=== PATIENT | male | born 1960 | race Two or more races ===

== ENCOUNTER 2019-02-04 10:16 | Inpatient (IN) | payer BC, MEDICAID ==
[~2019-02-04] VITALS: Ht 167.6 cm; Wt 82.9 kg
[2019-02-04 11:56] LABS: Basophils # (auto) 0 uL; Basophils % (auto) 0.5 % (0.0-2.0); Eosinophils # (auto) 0.1 uL; Eosinophils % (auto) 1.6 % (0.0-7.0); Hematocrit 40.4 % (41.0-53.0); Hemoglobin 14.2 g/dL (13.5-17.5); Lymphocytes # (auto) 1.6 uL; Lymphocytes % (auto) 27.5 % (10.0-50.0); Mean Corpuscular Hemoglobin 29.8 pg (28.0-32.0); Mean Corpuscular Hgb Conc. 35.2 g/dL (32.0-36.0); Mean Corpuscular Volume 84.8 fL (80.0-100.0); Monocytes # (auto) 0.4 uL; Monocytes % (auto) 7.6 % (0.0-12.0); Neutrophils # (auto) 3.7 uL; Neutrophils % (auto) 62.8 % (37.0-80.0); Nucleated Red Blood Cells % 0.1 %; Platelet Count (auto) 228 10^3/uL (140-450); Red Blood Cells 4.76 10^6/uL (4.5-5.90); Red Cell Distribution Width 13.7 % (11.8-14.3); White Blood Cell 5.9 10^3/uL (4.4-10.8)
[2019-02-04 12:10] LABS: Albumin 3.2 g/dL (3.4-5.0); Anion Gap 9 (5-15); Calcium 8.2 mg/dL (8.5-10.1); Carbon Dioxide 25 mmol/L (21-32); Chloride 98 mmol/L (98-107); Glucose 351 mg/dL (74-106); Potassium 4.2 mmol/L (3.5-5.1); Sodium 132 mmol/L (136-145)
[2019-02-04 12:17] LABS: Alkaline Phosphatase 91 U/L (45-117); Bilirubin, Total 0.6 mg/dL (0.2-1.0); GFR African American 97 mL/min; GFR Non-African American 80 mL/min
[2019-02-04 12:45] LABS: Alanine Aminotransferase 38 U/L (16-61); Aspartate Aminotransferase 20 U/L (15-37)
[2019-02-04 13:00] LABS: BUN/Creatinine Ratio 14.9; Blood Urea Nitrogen 15 mg/dL (7-18)
[2019-02-04] MEDS ORDERED: SODIUM CHLORIDE 0.9% 1,000 ML IV ONE (13:30)
[2019-02-04] MEDS ORDERED: ASPirin 81 mg TAB PO ONE (13:30)
[2019-02-04] MEDS: SODIUM CHLORIDE 0.9% 1,000 ML IV SCH (16:23)
[2019-02-04] MEDS ORDERED: ACETAMINOPHEN 500 MG TAB PO PRN (16:30)
[2019-02-04] MEDS ORDERED: TEMAZEPAM 15 MG CAP PO PRN (16:30)
[2019-02-04] MEDS ORDERED: DEXTROSE (50%) 50ML SYRG IV PRN (16:30)
[2019-02-04] MEDS ORDERED: NITROGLYCERIN 0.4 MG SL TAB SL PRN (16:30)
[2019-02-04] MEDS ORDERED: traMADol HCL 50 MG TAB PO PRN (16:30)
[2019-02-04 17:05] LABS: INR 1.07 (0.9-1.15); Partial Thromboplastin Time 27.3 sec (23.64-32.05)
[2019-02-04 17:35] LABS: CRP High Sensitivity 0.22 mg/dL (< 0.3)
[2019-02-04] MEDS: MORPHINE SULF INJ 2 MG/ML SYRINGE 1ML IV PRN ×2 (19:53→22:20)
--- NOTE | 2019-02-04 20:10 | NUR ---
Telemetry admit from ER LUPE FORD admitted to Telemetry unit after SBAR received. Patient oriented to primary RN, unit, room, bed, and unit policies regarding patient care and visiting hours. Patient now on continuous telemetry monitoring, tele box #. Patient placed on bedside oxygen, weighed by bedscale and encouraged to call if they need something. All questions and concerns addressed, patient verbalized understanding.
[2019-02-04 22:00] VITALS: BP 138/66
[2019-02-04] MEDS ORDERED: ATORVASTATIN 20 MG TAB PO SCH (22:00)
--- NOTE | 2019-02-04 22:00 | NUR ---
Patient complains of chest pain. EKG and vitals done. Vitals stable. Patient then offered Nitro and refused the medication. He stated "Nitroglycerin never works for me and it always gives me a big headache". Educated was provided of the goal and side effects of Nitroglycerin.
[2019-02-04] MEDS: InsuLIN REG 1unit/0.01ml Soln (100units/ml) SC SCH (22:19)
[2019-02-04] MEDS: ACCU-CHEK COMFORT CURVE STRIP VI SCH (22:19)
--- NOTE | 2019-02-04 22:20 | NUR ---
Patient given first dose of Morphine for chest pain
[2019-02-04] MEDS: METOPROLOL TARTRATE 25 MG TAB PO SCH (22:29)
[2019-02-04] MEDS: FAMOTIDINE 20 MG TAB PO SCH (22:29)
--- NOTE | 2019-02-04 23:00 | NUR ---
Upon reassessment, patient stated that he feels much better and the pain decreased. Patient comfortable with no s/s of distress. Call light within reach. Will continue to monitor for changes Q1 hour and PRN. Charge nurse made aware.
[2019-02-04] MEDS ORDERED: LOSA25TA8 PO (23:36)
[2019-02-04] MEDS ORDERED: ATOR80TA PO (23:36)
[2019-02-04] MEDS ORDERED: INSLANTI SC (23:36)
[2019-02-04] MEDS ORDERED: METF-370 PO (23:36)
[2019-02-05] MEDS: InsuLIN REG 1unit/0.01ml Soln (100units/ml) SC SCH ×6 (00:48→20:00)
[2019-02-05] MEDS: ACCU-CHEK COMFORT CURVE STRIP VI SCH ×6 (00:48→20:00)
[2019-02-05 03:46] LABS: HDL Cholesterol 37 mg/dL (40-59); Triglycerides 2417 mg/dL (< 150)
[2019-02-05 03:56] LABS: Cholesterol 358 mg/dL (< 200)
[2019-02-05 05:48] VITALS: BP 141/71
[2019-02-05] MEDS: SODIUM CHLORIDE 0.9% 1,000 ML IV SCH ×2 (06:02→17:15)
--- NOTE | 2019-02-05 06:52 | NUR ---
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 Upon entrance of the room, patient stated that he feels as though his blood sugar is still running low. Blood sugar was checked and resulted at 106
--- NOTE | 2019-02-05 06:55 | NUR ---
Patient stated that he is in pain with a rating of 10/10. Pain medication was offered for severe pain and patient accepted. Medication was then drawn up and brought into the room. Patient then stated "i dont think i want that medication anymore because i feel like i am having a hard time catching my breath and i think the medication will make it worse". Oxygen by NC was offered and patient refused. Patient educated on deep breathing and relaxation techniques. Care will be endorsed to day shift RN.
--- NOTE | 2019-02-05 07:30 | NUR ---
Opening Shift Note Assumed care of patient, awake and alert. No S/S of distress/SOB or pain. Instructed on POC and to call for assist PRN, will continue to monitor for changes Q1hr and PRN.
[2019-02-05 09:00] VITALS: BP 141/68
[2019-02-05] MEDS: FAMOTIDINE 20 MG TAB PO SCH ×2 (09:13→21:53)
[2019-02-05] MEDS: METOPROLOL TARTRATE 25 MG TAB PO SCH ×2 (09:14→21:59)
[2019-02-05] MEDS: ASPirin 81 mg TAB PO SCH (09:14)
[2019-02-05] MEDS: ENOXAPARIN SOD 40 MG/0.4 ML SYRINGE SC SCH (09:15)
[2019-02-05] MEDS: NITROGLYCERIN 0.2MG/HR TOPICAL PATCH TD SCH (09:15)
[2019-02-05] MEDS: MORPHINE SULFATE 4 MG/ML SYR/VIAL IV PRN ×2 (09:51→21:52)
--- NOTE | 2019-02-05 12:30 | NUR ---
FAMILY AT BEDSIDE.
[2019-02-05 13:00] VITALS: BP 123/70
[2019-02-05 17:05] VITALS: BP 125/71
[2019-02-05] MEDS ORDERED: LORazepam 2MG/ML-1ML VIAL IV ONE (17:15)
[2019-02-05] MEDS ORDERED: hydrALAZINE HCL 20 MG/ML VL IV PRN (17:15)
[2019-02-05] MEDS ORDERED: IOHEXOL 350 MG/ML 100ML IJ ONE (17:29)
[2019-02-05 17:57] LABS: Basophils # (auto) 0.2 uL; Basophils % (auto) 3.3 % (0.0-2.0); Eosinophils # (auto) 0.1 uL; Eosinophils % (auto) 1.5 % (0.0-7.0); Hematocrit 38.2 % (41.0-53.0); Hemoglobin 13.6 g/dL (13.5-17.5); Lymphocytes # (auto) 1.6 uL; Lymphocytes % (auto) 29.6 % (10.0-50.0); Mean Corpuscular Hemoglobin 30.3 pg (28.0-32.0); Mean Corpuscular Hgb Conc. 35.6 g/dL (32.0-36.0); Mean Corpuscular Volume 85.1 fL (80.0-100.0); Monocytes # (auto) 0.4 uL; Monocytes % (auto) 7.6 % (0.0-12.0); Neutrophils # (auto) 3.2 uL; Nucleated Red Blood Cells % 0.6 %; Platelet Count (auto) 234 10^3/uL (140-450); Red Blood Cells 4.49 10^6/uL (4.5-5.90); Red Cell Distribution Width 13.4 % (11.8-14.3); White Blood Cell 5.5 10^3/uL (4.4-10.8)
--- NOTE | 2019-02-05 18:00 | NUR ---
IV insertion FOR IMAGING WITH CONTRAST IV access obtained, via clean sterile technique by inserting 20 gauge catheter at LEFT FOREARM after 2 attempt(s). IV secured properly. No trauma to site. Patient tolerated well. NOTE:
[2019-02-05 18:14] LABS: BUN/Creatinine Ratio 20.2; Calcium 7.7 mg/dL (8.5-10.1); Potassium 4.4 mmol/L (3.5-5.1)
--- NOTE | 2019-02-05 18:50 | NUR ---
PT TAKEN FOR IMAGING VIA WHEELCHAIR. NO DISTRESS NOTED.
[2019-02-05 20:00] VITALS: BP 123/70
[2019-02-05] MEDS: ATORVASTATIN 20 MG TAB PO SCH (21:53)
[2019-02-05] MEDS: GEMFIBROZIL 600 MG TAB PO SCH (21:54)
[2019-02-05 22:00] VITALS: BP 120/50
--- NOTE | 2019-02-05 22:30 | NUR ---
Respiratory note: PT REFUSING TO WEAR CPAP PER ORDER. EDUCATED PT ON THE BENEFITS OF WEARING CPAP HOWEVER HE STATED HE "COULDNT DO IT." PT'S HR 68, RR 18, SPO2 97% ON RA. NO SIGNS OF ANY RESPIRATORY DISTRESS NOTED. ADVISED PT IS HE CHANGES HIS MIND TO CALL. RT NAME AND PAGER NUMBER WRITTEN ON BOARD. RN AWARE OF PT'S REFUSAL.
[2019-02-06] VITALS (7 sets, daily range): BP systolic 100–163; BP diastolic 50–77
--- NOTE | 2019-02-06 03:33 | NUR ---
PT OBSERVED STANDING BY BED TRYING TO REMOVE THE NETTED STOCKING SURROUNDING HIS IV. SITE. PT HAS PULLED ON IV AND BLOOD IS DRIPPING FROM IV SITE.LINEN AND GOWN CHANGE WITH PT ADVISED TO USE CALL LIGHT SO RN CAN HELP PT TO THE BATHROOM. PT VERBALIZES UNDERSTANDING.
[2019-02-06] MEDS: ACCU-CHEK COMFORT CURVE STRIP VI SCH ×7 (04:00→23:35)
[2019-02-06] MEDS: InsuLIN REG 1unit/0.01ml Soln (100units/ml) SC SCH ×7 (04:00→23:36)
--- NOTE | 2019-02-06 04:08 | NUR ---
PT ASKED FOR NEW NETTED STOCKING FOR IV SITE. WHEN PLACED ON PT'S ARM AROUND SITE-PT WANTED IT OFF. PT STATES HE CHANGED HIS MIND. NOW PT WANTS NETTED STOCKING TO BE APPLIED. STOCKING APPLIED. CALL LIGHT IN REACH.TOLD PT TO ASK FOR THE NURSE IF HE WANTS NETTED STOCKING OFF. PT STATES HE WILL JUST "RIP IT OFF". EDUCATED PT ON THE RISK OF PULLING OUT HIS IV. PT STATES HE DOESNT CARE.
[2019-02-06 06:00] LABS: Basophils # (auto) 0 uL; Basophils % (auto) 0.8 % (0.0-2.0); Eosinophils # (auto) 0.1 uL; Hematocrit 36.3 % (41.0-53.0); Monocytes # (auto) 0.5 uL; Monocytes % (auto) 9.9 % (0.0-12.0); White Blood Cell 4.9 10^3/uL (4.4-10.8)
[2019-02-06 06:02] LABS: Eosinophils % (auto) 1.9 % (0.0-7.0); Hemoglobin 13.5 g/dL (13.5-17.5); Lymphocytes # (auto) 1.3 uL; Lymphocytes % (auto) 26.5 % (10.0-50.0); Mean Corpuscular Hemoglobin 31.2 pg (28.0-32.0); Mean Corpuscular Hgb Conc. 37.2 g/dL (32.0-36.0); Neutrophils % (auto) 60.9 % (37.0-80.0); Nucleated Red Blood Cells % 0.3 %; Platelet Count (auto) 209 10^3/uL (140-450); Red Blood Cells 4.32 10^6/uL (4.5-5.90); Red Cell Distribution Width 13.6 % (11.8-14.3)
--- NOTE | 2019-02-06 06:10 | NUR ---
DR DUMONT'S OFFICE CALLED VIA [employer] BECAUSE OF A COMMUNICATION ORDER STATING TO CALL DR DUMONT WITH IMAGING RESULTS. SPOKE WITH BALTA RAINES RN EARLIER IN SHIFT AND SHE ADVISED TO WAIT UNTIL THE AM TO CALL. CALL PLACED TO [phone] WITH A VOICE MESSAGE STATING ALL CALLS ARE BEING ROUTED TO MD'S VOICE MAILBOX. LEFT A MESSAGE FOR MD TO CALL BACK FOR RESULTS.
[2019-02-06 06:18] LABS: Calcium 7.7 mg/dL (8.5-10.1); Potassium 4.2 mmol/L (3.5-5.1)
[2019-02-06] MEDS: SODIUM CHLORIDE 0.9% 1,000 ML IV SCH ×2 (06:35→20:08)
--- NOTE | 2019-02-06 06:41 | NUR ---
PT WAS MEDICATED WITH MORPHINE AT 2151. PT STATED LATER THAT THE MORPHINE DID NOT HELP HIS PAIN. PT STATES HIS PAIN IS "EVERYWHERE". PT NOW WANTING MORPHINE AND STATES THAT IT DIDNT WORK BECAUSE THE NURSE DIDNT PUSH IT FAST ENOUGH INTO HIS VEIN.OFFERED PATIENT TRAMADOL WHICH HE HAS ORDERED ALSO. PT DOESNT WANT TRAMADOL.
[2019-02-06] MEDS: MORPHINE SULFATE 4 MG/ML SYR/VIAL IV PRN ×4 (06:50→23:47)
--- NOTE | 2019-02-06 06:50 | NUR ---
PT MEDICATED WITH MORPHINE 2 MG IVP IN RT FOREARM HEPLOCK.
[2019-02-06 07:13] LABS: BUN/Creatinine Ratio 17.7
--- NOTE | 2019-02-06 07:30 | NUR ---
Opening Shift Note RECEIVED REPORT FROM NOC RN. Assumed care of patient, awake and alert. No S/S of distress/SOB or pain. BED IN LOWEST, LOCKED POSITION WITH SIDERAILS UP x2 AND CALL LIGHT WITHIN REACH. Instructed on POC and to call for assist PRN, will continue to monitor for changes Q1hr and PRN.
[2019-02-06] MEDS: ENOXAPARIN SOD 40 MG/0.4 ML SYRINGE SC SCH (10:46)
[2019-02-06] MEDS: NITROGLYCERIN 0.2MG/HR TOPICAL PATCH TD SCH (10:50)
[2019-02-06] MEDS: FAMOTIDINE 20 MG TAB PO SCH ×2 (10:50→22:27)
[2019-02-06] MEDS: METOPROLOL TARTRATE 25 MG TAB PO SCH ×2 (10:50→22:28)
[2019-02-06] MEDS: GEMFIBROZIL 600 MG TAB PO SCH ×2 (10:51→22:27)
[2019-02-06] MEDS: ASPirin 81 mg TAB PO SCH (10:51)
[2019-02-06] MEDS: PROMETHAZINE HCL 25 MG/ML 1ML IV PRN (20:06)
--- NOTE | 2019-02-06 20:06 | NUR ---
Opening Shift Note Assumed care of patient, awake and alert x4. No S/S of distress/SOB or pain, c/o nausea, states he feels his blood sugar is low, checked 229, medicated with phenergan, refused dinner, refuses insulin coverage at this time. Instructed on POC and to call for assistance PRN, will continue to monitor for changes Q1hr and PRN.
[2019-02-06] MEDS: ATORVASTATIN 20 MG TAB PO SCH (22:27)
--- NOTE | 2019-02-06 23:00 | NUR ---
Respiratory note: PT REFUSING TO WEAR CPAP AT THIS TIME. RE-ITERATED BENEFITS OF USING THE CPAP HOWEVER PT STATED HE COULD NOT TOLERATE IT. PT'S HR 71, RR 18, SPO2 97% ON RA. NO SIGNS OF ANY RESPIRATORY DISTRESS NOTED. WILL CONTINUE TO MONITOR PT.
--- NOTE | 2019-02-06 23:47 | NUR ---
Medicated for c/o 12/09 shoulder pain, will continue to monitor
[2019-02-07] MEDS: ACCU-CHEK COMFORT CURVE STRIP VI SCH ×3 (04:17→12:41)
[2019-02-07] MEDS: InsuLIN REG 1unit/0.01ml Soln (100units/ml) SC SCH ×3 (04:18→12:42)
[2019-02-07] MEDS: MORPHINE SULFATE 4 MG/ML SYR/VIAL IV PRN (04:43)
[2019-02-07 05:00] VITALS: BP 155/75
[2019-02-07 06:02] LABS: Basophils # (auto) 0.1 uL; Basophils % (auto) 1.2 % (0.0-2.0); Eosinophils # (auto) 0.1 uL; Eosinophils % (auto) 1.8 % (0.0-7.0); Hematocrit 34.9 % (41.0-53.0); Hemoglobin 12.4 g/dL (13.5-17.5); Lymphocytes # (auto) 1.1 uL; Lymphocytes % (auto) 27.1 % (10.0-50.0); Mean Corpuscular Hemoglobin 29.9 pg (28.0-32.0); Mean Corpuscular Hgb Conc. 35.4 g/dL (32.0-36.0); Mean Corpuscular Volume 84.5 fL (80.0-100.0); Monocytes # (auto) 0.3 uL; Monocytes % (auto) 7.4 % (0.0-12.0); Neutrophils # (auto) 2.6 uL; Neutrophils % (auto) 62.5 % (37.0-80.0); Nucleated Red Blood Cells % 0.2 %; Platelet Count (auto) 185 10^3/uL (140-450); Red Blood Cells 4.14 10^6/uL (4.5-5.90); Red Cell Distribution Width 13.4 % (11.8-14.3); White Blood Cell 4.2 10^3/uL (4.4-10.8)
[2019-02-07 06:10] VITALS: BP 136/75
[2019-02-07 06:23] LABS: Potassium 3.3 mmol/L (3.5-5.1)
[2019-02-07 06:28] LABS: BUN/Creatinine Ratio 18.2; Calcium 6.3 mg/dL (8.5-10.1)
--- NOTE | 2019-02-07 07:30 | NUR ---
Opening Shift Note RECEIVED REPORT FROM NOW RN. Assumed care of patient, awake and alert. No S/S of distress/SOB or pain. BED IN LOWEST, LOCKED POSITION WITH SIDERAILS UP x2 AND CALL LIGHT WITHIN REACH. Instructed on POC and to call for assist PRN, will continue to monitor for changes Q1hr and PRN.
[2019-02-07] MEDS ORDERED: LORazepam 2MG/ML-1ML VIAL IV ONE (08:30)
[2019-02-07] MEDS: PROMETHAZINE HCL 25 MG/ML 1ML IV PRN (08:33)
[2019-02-07] MEDS ORDERED: ADENOSINE 70 MG in GIVE UN-DILUTED 0 ML IV STA (08:46)
[2019-02-07 09:00] VITALS: BP 148/77
--- NOTE | 2019-02-07 09:47 | NUR ---
Respiratory note: PT NOT IN ROOM AT THIS TIME. PT NOT ON CPAP.
[2019-02-07 10:36] VITALS: BP 136/83
--- NOTE | 2019-02-07 12:15 | NUR ---
Nutrition Assessment Notes please see attached link for complete assessment Est. Needs BW 82 [id number] kcal (23-25 kcal/kgBW), 82-90 gms pro (1.0-1.1 gms/kgBW). Will continue to monitor pertinent labs and reassess nutrient need prn Addendum: 02/07/19 at [address] Amended: Links added.
[2019-02-07] MEDS: FAMOTIDINE 20 MG TAB PO SCH (13:22)
[2019-02-07] MEDS: NITROGLYCERIN 0.2MG/HR TOPICAL PATCH TD SCH (13:23)
[2019-02-07] MEDS: ENOXAPARIN SOD 40 MG/0.4 ML SYRINGE SC SCH (13:24)
[2019-02-07] MEDS: GEMFIBROZIL 600 MG TAB PO SCH (13:24)
[2019-02-07] MEDS: METOPROLOL TARTRATE 25 MG TAB PO SCH (13:24)
[2019-02-07] MEDS: ASPirin 81 mg TAB PO SCH (13:25)
[2019-02-07] MEDS ORDERED: CALCIUM GLUC 4.65meq/50ml D5AE 50 ML IV ONE (14:00)
[2019-02-07] MEDS: POTASSIUM CHL 20 Meq TABLET PO SCH ×2 (14:24→16:00)
--- NOTE | 2019-02-07 14:25 | NUR ---
DR. Luis Manuel DUMONT CALLED DR. LUCERO FOR NEUROLOGY CLEARANCE. DR. LUCERO HAS CLEARED THE PATIENT FOR DISCHARGE.
[2019-02-07] MEDS ORDERED: ASPI81CH43 PO (14:26)
--- NOTE | 2019-02-07 15:20 | NUR ---
DR. Luis Manuel DUMONT CALLED DR. MONCADA FOR CARDIOLOGY CLEARANCE. DR. MONCADA HAS CLEARED THE PATIENT FOR DISCHARGE.
[2019-02-07 16:56] VITALS: BP 152/80
[2019-02-07 17:06] VITALS: BP 152/80
[2019-02-07 17:41] LABS: Albumin 2.3 g/dL (3.4-5.0); Bilirubin, Direct < 0.1 mg/dL (0-0.2)
[2019-02-07 17:49] LABS: Alkaline Phosphatase 64 U/L (45-117); Aspartate Aminotransferase 17 U/L (15-37); Bilirubin, Total 0.4 mg/dL (0.2-1.0); Total Protein 4.7 g/dL (6.4-8.2)
[2019-02-07 18:00] LABS: Alanine Aminotransferase 23 U/L (16-61)
[2019-02-08] MEDS ORDERED: LOSARTAN POTASSIUM 25 MG TAB PO SCH (10:00)
== END 2019-02-07 18:29 | disposition home or self-care (01) | DRG 313 ==
LOC: ER 10:16 → TELE 10:17 → TELE-WESTW 20:27
PROVIDERS: ADMIT Internal Medicine; ATTEND Internal Medicine
DX: R07.89 Other chest pain (principal); I69.354 Hemiplegia and hemiparesis following cerebral infarction affecting left non-dominant side; E87.1 Hypo-osmolality and hyponatremia; E78.5 Hyperlipidemia, unspecified; I10 Essential (primary) hypertension; F17.200 Nicotine dependence, unspecified, uncomplicated; G47.10 Hypersomnia, unspecified; E87.6 Hypokalemia; E11.65 Type 2 diabetes mellitus with hyperglycemia; E66.3 Overweight; E83.51 Hypocalcemia; N28.1 Cyst of kidney, acquired; E78.00 Pure hypercholesterolemia, unspecified; E78.1 Pure hyperglyceridemia; G51.0 Bell's palsy; M19.90 Unspecified osteoarthritis, unspecified site; Z79.4 Long term (current) use of insulin; Z79.82 Long term (current) use of aspirin; Z79.899 Other long term (current) drug therapy; Z90.49 Acquired absence of other specified parts of digestive tract; Z83.3 Family history of diabetes mellitus; Z82.49 Family history of ischemic heart disease and other diseases of the circulatory system; Z80.1 Family history of malignant neoplasm of trachea, bronchus and lung; Z68.29 Body mass index [BMI] 29.0-29.9, adult
CPT/HCPCS: 36415; 70450; 70496; 70498; 70551; 71046; 71275; 78452; 80048; 80053; 80061; 80076; 82550; 82962; 83036; 83735; 83880; 84443; 84484; 85025; 85379; 85610; 85652; 85730; 86141; 93005; 93017; 93306; G0378; J0153; J0610; J1815

== ENCOUNTER 2021-03-05 23:30 | Emergency (ER) | payer BC, MEDICAID, OTHER ==
[~2021-03-05] VITALS: Ht 167.6 cm; Wt 86.2 kg
[~2021-03-05 23:30] MED LIST: ASPI81CH43 PO; ATOR80TA PO; INSLANTI SC; LOSA25TA2 PO; METF-370 PO
[2021-03-05 23:31] VITALS: BP 177/82
[2021-03-06 01:30] LABS: Basophils # (auto) 0 10 ^3/uL (0-0.2); Basophils % (auto) 0.2 % (0.0-2.0); Eosinophils # (auto) 0 10 ^3/uL (0-0.8); Eosinophils % (auto) 0.1 % (0.0-7.0); Hematocrit 41.7 % (41.0-53.0); Hemoglobin 14.2 g/dL (13.5-17.5); Lymphocytes # (auto) 1.1 10 ^3/uL (0.4-5.4); Lymphocytes % (auto) 10.4 % (10.0-50.0); Mean Corpuscular Hemoglobin 28.7 pg (28.0-32.0); Mean Corpuscular Hgb Conc. 34.1 g/dL (32.0-36.0); Mean Corpuscular Volume 84.2 fL (80.0-100.0); Monocytes # (auto) 0.5 10 ^3/uL (0-1.3); Monocytes % (auto) 4.4 % (0.0-12.0); Neutrophils # (auto) 8.8 10 ^3/uL (1.6-8.6); Neutrophils % (auto) 84.9 % (37.0-80.0); Red Blood Cells 4.95 10^6/uL (4.5-5.90); Red Cell Distribution Width 12.9 % (11.8-14.3); White Blood Cell 10.3 10^3/uL (4.4-10.8)
[2021-03-06 01:45] LABS: Albumin 3.9 g/dL (3.4-5.0); Calcium 9.2 mg/dL (8.5-10.1); Magnesium 2.3 mg/dL (1.6-2.6); Potassium 4.9 mmol/L (3.5-5.1)
[2021-03-06 01:53] LABS: Bilirubin, Total 0.5 mg/dL (0.2-1.0); Total Protein 7.6 g/dL (6.4-8.2)
== END 2021-03-06 02:46 | disposition left against medical advice (07) ==
LOC: ER 23:30
DX: R07.89 Other chest pain (principal); R11.2 Nausea with vomiting, unspecified; R51.9 Headache, unspecified; I10 Essential (primary) hypertension; E78.5 Hyperlipidemia, unspecified; M19.90 Unspecified osteoarthritis, unspecified site; Z86.73 Personal history of transient ischemic attack (TIA), and cerebral infarction without residual deficits; Z53.29 Procedure and treatment not carried out because of patient's decision for other reasons; Z90.49 Acquired absence of other specified parts of digestive tract
CPT/HCPCS: 36415; 71045; 80053; 83735; 83880; 84484; 85025; 93005